=== PATIENT | male | born 1985 | race Two or more races ===

== ENCOUNTER 2017-04-24 03:32 | Emergency (ER) | payer SELFPAY ==
[2017-04-24 03:39] VITALS: BP 143/85; BMI 27.4
[2017-04-24] MEDS ORDERED: REGLAN INJ 10 MG VIAL IM STA (04:19)
[2017-04-24] MEDS ORDERED: TORADOL 60 MG VIAL IM ONE (04:19)
[2017-04-24] MEDS ORDERED: REGLAN INJ 10 MG VIAL ONE (04:21)
[2017-04-24] MEDS ORDERED: TORADOL 30 MG VIAL ONE (04:21)
--- NOTE | 2017-04-24 04:25 | DR.GENAD ---
HPI - PCP Primary Care Physician: NFD - Complaint/Symptoms Chief Complaint Doctors Comments: Patient is complaining of occipital headache for the past 24 hours getting worst tonight with nausea, blurred vision, dizziness,with numbness in his left arm. He denies chest pain, SOB, cold, cough , fever or chills. States he had a similar problem in March when he was working in [facility] he almost passed out and they told him he was having a migraine and gave him Butabitol but it is not helping his headache and he cannot sleep due to the pain tonight. states he had an MRI scan then and they told him it was normal. He denies tobacco, alcohol or drug usage. He denies any recent trauma. He is not having any problems with his strength or balance. Chief Complaint:: "STARTED YESTERDAY MORNING WITH HEADACHE, FEELS WEAK, NASEUA, AND LEFT SIDE OF FACE, TONGUE, ARM FEELS NUMB." TRANSLATED PER Self Treatment fo Chief Complaint: NONE - Nurses notes reviewed Nurses Notes Review: Yes - Source History Provided: Patient, Significant Other - Mode of Arrival Mode of Arrival: Ambulatory - Timing Onset of Chief Complaint: 04/23/17 Came on: Gradually - Duration Duration: Constant How lon Duration: Hours - Location Location: occipital and left sided headache - Severity Severity: Moderate - Modifying Factors Worsens:: nothing Improves:: nothing PMH - PMH Past Medical History: Yes Past Medical History: Migraines Past Surgical History: No - Family History History of Family Medical Conditions: No - Social History Does patient currently use any type of tobacco product: No Have you used tobacco products in the last 12 months: No Type of Tobacco Use: None Does any household member use tobacco: No Alcohol Use: None Do you use any recreational Drugs:: No Lives With: Spouse Lives Where: Home - infectious screening Have you traveled outside the country in the last 6 months?: No Isolation: Standard ROS - Review of Systems Constitutional: No Symptoms Reported. negative: See HPI, Chills, Diaphoresis, Fever, Malaise, Weakness, Irritable, Fatigue, Loss of Appetite, Other Eyes: No Symptoms Reported. negative: See HPI, Eye Pain, Blurred Vision, Tearing, Discharge, Photophobia, Diplopia, Other ENTM: No Symptoms Reported. negative: See HPI, Ear Pain, Ear Discharge, Pulling on Ears, Hearing Loss, Nose Pain, Nose Discharge, Epistaxis, Nose Congestion, Mouth Pain, Mouth Swelling, Loose Teeth, Drooling, Throat Pain, Throat Swelling, Ear Foreign Body Respiratoy: No Symptoms Reported, Short of Breath. negative: See HPI, Productive Cough, Non-Productive Cough, Moist Cough, Dry Cough, Hacking Cough, Barking Cough, Brassy Cough, Orthopnea, Stridor, Wheezing, Hemoptysis, Other Cardiovascular: No Symptoms Reported. negative: See HPI, Chest Pain, Edema, Palpitations, Syncope, Cyanosis, Skin Mottling, Other Gastrointestinal/Abdominal: No Symptoms Reported, Nausea. negative: See HPI, Abdominal Pain, Constipation, Diarrhea, Vomiting, Food Intolerance, Other Genitourinary: No Symptoms Reported. negative: See HPI, Discharge, Dysuria, Frequency, Hematuria, Pain, Bleeding, Other Neurological: No Symptoms Reported, Headache, Numbness (left hand). negative: See HPI, Anxiety, Depressed, Emotional Problems, Paresthesia, Pre-existing Deficit, Seizure, Tingling, Tremors, Weakness, Dizziness, Problems Walking, Speech Problem, Other Musculoskeletal: No Symptoms Reported Integumentary: No Symptoms Reported Hematologic/Lymphatic: No Symptoms Reported. negative: See HPI, Anemia, Blood Clots, Easy Bleeding, Easy Bruising, Swollen Glands, Lymphadenopathy, Other Endocrine: See HPI Psychiatric: No Symptoms Reported. negative: See HPI, Anxiety, Depression, Hallucinations, Excessive crying, Suicidal, Other PE - Vital Signs Vitals: Temperature 98.3 F Pulse Rate 73 Respiratory Rate 16 Blood Pressure 143/85 O2 Sat by Pulse Oximetry 98 - General Limitations: No Limitations General Appearance: Alert, In Distress (moderate). negative: In No Apparent Distress, Appears Intoxicated, Anxious, Lethargic, Obtunded, Obese, Cachectic, Other - Head Head Exam: Normal Inspection, Atraumatic, Normocephalic - Eyes Eye exam: Normal Appearance, PERRL, EOMI. negative: Scleral Icterus, Conjunctival Injection, Nystagmus, Miosis, Mydrasis, Periorbital Swelling, Periorbital Tenderness, Other - ENT ENT Exam: Normal Exam, Normal Oropharynx, Normal External Ear Exam, Mucous Membranes Moist, TM's Normal Bilaterally External Ear Exam: Normal External Inspection TM/Canal Exam: Bilateral Normal Nose Exam: Normal Nose Exam Mouth Exam: Normal Inspection Throat Exam: Normal Inspection. negative: Tonsillar Erythema, Tonsillomegaly, Tonsillar Exudate, R Peritonsillar Mass, L Peritonsillar Mass, Muffled Voice, Other - Neck Neck Exam: Normal Inspection, Full ROM, Trachea Midline, Tenderness (occipital scalp; no swelling or erythema) - Chest Chest Inspection: Normal Inspection, Symmetric Chest Wall Rise - Respiratory Respiratory Exam: Normal Lung Sounds Bilat. negative: Accessory Muscle Use, Chest Wall Tenderness, Prolonged Expiratory Phase, Respiratory Distress, Stridor , Other Respiratory Exam: Bilateral Clear to Auscultation - Cardiovascular Cardiovascular Exam: Regular Rate, Normal Rhythm, Normal Heart Sounds. negative : Bradycardia, Tachycardia, Irregular Rhythm, Systolic Murmur, Diastolic Murmur , Rubs, Gallop, Clicks, JVD, +S1, +S2, +S3, +S4, Other - Abdominal Exam Abdominal Exam: Normal Inspection, Normal Bowel Sounds, Soft Abdominal Tenderness: negative: RUQ, RLQ, LUQ, LLQ, Epigastrium, Suprapubic, Diffuse, Mild, Moderate, Severe, Other - Extremities Extremities Exam: Normal Inspection, Full ROM, Normal Capillary Refill. negative: Tenderness, Edema, Joint Swelling, Calf Tenderness, Other - Back Back Exam: Normal Inspection, Full ROM. negative: Tenderness, (R) CVA Tenderness, (L) CVA Tenderness, Muscle Spasm, Paraspinal Tenderness, Vertebral Tenderness, Rashes, (R) Sciatic Notch Tenderness, (L) Sciatic Notch Tendern, (R ) Straight Leg Raise, (L) Straight Leg Raise, Other - Neurologic Neurological Exam: Alert, Oriented X3, CN II-XII Intact, Normal Gait, Reflexes Normal - Psychiatric Psychiatric Exam: Normal Affect, Normal Mood - Skin Skin Exam: Warm, Dry, Intact, Normal Color. negative: Rash, Cyanosis, Diaphoresis, Erythema, Pallor, Mottled, Other ROR - Labs Reviewed Laboratory Results Reviewed?: Yes (all labs and x-ray results reviewed and discussed with patient) Result Diagrams: 04/24/17 04:40 04/24/17 04:40 Laboratory: WBC 7.8 X10^3/uL (3.6-10.0) 04/24/17 04:40 RBC 4.73 X10^6/uL (4.7-6.0) 04/24/17 04:40 Hgb 14.9 g/dL (13.5-18.0) 04/24/17 04:40 Hct 42.3 % (42.0-54.0) 04/24/17 04:40 MCV 89.5 fL (80.0-100.0) 04/24/17 04:40 MCH 31.6 pg (27.0-34.0) 04/24/17 04:40 MCHC 35.4 g/dL (33.0-35.0) H 04/24/17 04:40 RDW 12.9 % (11.6-16.5) 04/24/17 04:40 Plt Count 220 X10^3/uL (150.0-450.0) 04/24/17 04:40 MPV 8.6 fL (7.4-11.0) 04/24/17 04:40 Neut % 40.0 % (42.0-75.0) L 04/24/17 04:40 Lymph % 48.7 % (21.0-51.0) 04/24/17 04:40 Kidder % 6.9 % (0.0-13.0) 04/24/17 04:40 Eos % 3.3 % (0.9-2.9) H 04/24/17 04:40 Baso % 1.1 % (0.2-1.0) H 04/24/17 04:40 Neut # 3.1 x10^3/uL (2.2-4.8) 04/24/17 04:40 Lymph # 3.8 X10^3/uL (1.3-2.9) H 04/24/17 04:40 Kidder # 0.5 x10^3/uL (0.3-0.8) 04/24/17 04:40 Eos # 0.3 x10^3/uL (0.0-0.2) H 04/24/17 04:40 Baso # 0.1 X10^3/uL (0.0-0.1) 04/24/17 04:40 Absolute Nucleated RBC 0.0 /100WBC 04/24/17 04:40 Sodium 140 mmol/L (136-145) 04/24/17 04:40 Corrected Sodium TNP 04/24/17 04:40 Potassium 3.7 mmol/L (3.5-5.1) 04/24/17 04:40 Chloride 104 mmol/L (98-107) 04/24/17 04:40 Carbon Dioxide 28.4 mmol/L (21-32) 04/24/17 04:40 BUN 16 mg/dL (7-18) 04/24/17 04:40 Creatinine 0.84 mg/dL (0.70-1.30) 04/24/17 04:40 Est GFR (MDRD) Af Amer > 60 (>60) 04/24/17 04:40 Est GFR (MDRD) Non-Af > 60 (>60) 04/24/17 04:40 Glucose 108 mg/dL (65-99) H 04/24/17 04:40 Calcium 8.3 mg/dL (8.5-10.1) L 04/24/17 04:40 Corrected Calcium TNP 04/24/17 04:40 Total Bilirubin 0.30 mg/dL (0.2-1.0) 04/24/17 04:40 AST 38 Units/L (15-37) H 04/24/17 04:40 ALT 86 Units/L (12-78) H 04/24/17 04:40 Alkaline Phosphatase 108 Units/L (46-116) 04/24/17 04:40 Total Protein 7.5 g/dL (6.4-8.2) 04/24/17 04:40 Albumin 3.7 g/dL (3.4-5.0) 04/24/17 04:40 Globulin 3.8 g/dL (2.5-4.5) 04/24/17 04:40 Albumin/Globulin Ratio 1.0 Ratio (1.1-2.1) L 04/24/17 04:40 - XRAY XRAY Interpreted by: Radiologist (CT of brain: Normal brain CT examination) - Diagnosis Discharge Problem: Headache Qualifiers: Headache type: unspecified Headache chronicity pattern: acute headache - Discharge Plan Disposition: 01 HOME, SELF-CARE Condition: Stable - Follow ups/Referrals Follow ups/Referrals: NFD,None [Primary Care Provider] - 3 days ISREAL SEQUEIRA [STAFF PHYSICIAN] - 3 days - Instructions Instructions: General Headache Without Cause, [id number]
[2017-04-24 04:50] LABS: BASOPHILS # (AUTO) 0.1 X10^3/uL (0.0-0.1); BASOPHILS % (AUTO) 1.1 % (0.2-1.0); EOSINOPHILS # (AUTO) 0.3 x10^3/uL (0.0-0.2); EOSINOPHILS % (AUTO) 3.3 % (0.9-2.9); HEMATOCRIT 42.3 % (42.0-54.0); HEMOGLOBIN 14.9 g/dL (13.5-18.0); LYMPHOCYTES # (AUTO) 3.8 X10^3/uL (1.3-2.9); LYMPHOCYTES % (AUTO) 48.7 % (21.0-51.0); MEAN CORPUSCULAR HEMOGLOBIN 31.6 pg (27.0-34.0); MEAN CORPUSCULAR HGB CONC 35.4 g/dL (33.0-35.0); MEAN CORPUSCULAR VOLUME 89.5 fL (80.0-100.0); MEAN PLATELET VOLUME 8.6 fL (7.4-11.0); MONOCYTES # (AUTO) 0.5 x10^3/uL (0.3-0.8); MONOCYTES % (AUTO) 6.9 % (0.0-13.0); NEUTROPHILS # (AUTO) 3.1 x10^3/uL (2.2-4.8); PLATELET COUNT 220 X10^3/uL (150.0-450.0); RED BLOOD COUNT 4.73 X10^6/uL (4.7-6.0); RED CELL DISTRIBUTION WIDTH 12.9 % (11.6-16.5); WHITE BLOOD COUNT 7.8 X10^3/uL (3.6-10.0)
[2017-04-24 05:00] LABS: ALANINE AMINOTRANSFERASE 86 Units/L (12-78); ALBUMIN 3.7 g/dL (3.4-5.0); ALKALINE PHOSPHATASE 108 Units/L (46-116); ASPARTATE AMINO TRANSFERASE 38 Units/L (15-37); BLOOD UREA NITROGEN 16 mg/dL (7-18); CALCIUM 8.3 mg/dL (8.5-10.1); CARBON DIOXIDE 28.4 mmol/L (21-32); CHLORIDE 104 mmol/L (98-107); CREATININE 0.84 mg/dL (0.70-1.30); GLUCOSE 108 mg/dL (65-99); SODIUM 140 mmol/L (136-145); TOTAL PROTEIN 7.5 g/dL (6.4-8.2); eGFR BLACK RACES > 60 (>60); eGFR NON BLACK RACES > 60 (>60)
--- NOTE | 2017-04-24 05:07 | CT ---
EXAM: CT BRAIN WITHOUT CONTRAST INDICATION: Headache COMPARISION: No Priors TECHNIQUE: Routine axial CT of the brain was performed without intravenous contrast. FINDINGS: The cerebral and cerebellar cortex are normal. The ventricular system is nondilated. No intra or ext ra-axial mass or hemorrhage. The fleming-white junction is preserved. There is no evidence of subacute ischemic change. The basilar cisterns are clear. The skull is intact. The mastoid air cells are clear. IMPRESSION: Normal brain CT examination Reported By:
== END 2017-04-24 05:32 | disposition home or self-care (01) ==
LOC: ER 03:32
DX: R51 Headache (principal)
CPT/HCPCS: 36415; 70450; 80053; 85025; 96372; 99283; J1885; J2765